=== PATIENT | female | born 1955 | race Caucasian/White ===

== ENCOUNTER 2016-10-28 10:17 | Outpatient (CLI) | payer OTHER ==
[~2016-10-28 10:17] MED LIST: AMITIZA24 MCG PO; ATORVASTATIN CA20 MG PO; CVS GLYCERIN ADU2 GM PR; CYCLOBENZAPRINE10 MG PO; ENALAPRIL MALE2.5 MG PO; ESTRADIOL0.5 MG PO; HYDROCHLOROTH12.5 MG PO; JARDIANCE25 MG PO; LANTUS SOL100 UNITS/; LEVOTHYROXINE100 MCG PO; METOCLOPRAMIDE10 MG PO; NOVOLOG PE100 UNITS/; OXYCONTIN PO; OXYCONTIN30 MG PO; TRULICITY1.5 MG/0.5; ZOFRAN ODT4 MG PO
[2016-10-28 10:45] VITALS: BP 140/64
--- NOTE | 2016-10-28 11:32 | NUR ---
PT HERE FOR PHLEBOTOMY HEP LOC PLACED RIGHT FOREARM WITH AN 18 GUAGE 1 UNIT REMOVED PT SHAVON PROCEDURE WELL
--- NOTE | 2016-10-28 12:24 | NUR ---
PT STATED FELT LIKE BLOOD SUGAR WAS LOW ACCU CHECK 228. STATED SHE GETS THE SAME SX EIGHT HIGH OR LOW WATER GIVEN PT STATED SHE JUST NEEDS TO GET SOME INSULIN WHICH SHE HAS. PT IN DISCHARGED WITH SPOUSE
== END 2016-10-28 14:40 | disposition home or self-care (01) ==
LOC: SDP SRH 10:17 → OB SRH 11:26 → SDP SRH 14:40
PROC: 05993ZZ Drainage of Right Brachial Vein, Percutaneous Approach (ICD-10-PCS; principal; 2016-10-28)
DX: D75.1 Secondary polycythemia (principal)

== ENCOUNTER 2017-01-06 14:03 | Outpatient (CLI) | payer OTHER | END 2017-01-06 23:00 | LOC: MRI SRH 14:03 | DX: M54.2 Cervicalgia (principal) ==

== ENCOUNTER → 2017-01-12 | Outpatient (CLI) | payer OTHER ==
--- NOTE | 2017-01-12 16:15 | DIAGNOSTIC IMAGING REPORT ---
PROCEDURE: MR LUMBAR SPINE W/O CONTRAST INDICATION: LBP TECHNIQUE: Noncontrast T1, T2, and STIR sagittal images. T1 and T2 axial images. COMPARISON: Lumbar spine MRI dated 02/24/2010 FINDINGS: L1-2: Normal. L2-3: Normal. L3-4: Normal. L4-5: There is a central and right-sided herniated nucleus pulposus at L4-5. There is 4-5 mm of cranial migration of the fragment. L5-S1: No change in the previously described moderate set disease with a grade 1 (2 mm) degenerative listhesis. IMPRESSION: 1. Herniated nucleus pulposus L4-5 that is central and right-sided with 4-5 mm of cranial migration.
--- NOTE | 2017-01-12 17:11 | DIAGNOSTIC IMAGING REPORT ---
PROCEDURE: MR CERVICAL SPINE W/O CONT INDICATION: CERVICALAGIA TECHNIQUE: Noncontrast T1, T2, and STIR sagittal images. T2 and gradient axial images. COMPARISON: Cervical spine MRI 04/02/2015. FINDINGS: Anterior surgical fusion at C6-7 with right C6 laminectomy. Normal alignment without fracture. Mild C4-5 disc space narrowing and spur formation at C5-6 and C7-T1. Mild spur formation at S4-5. Normal cervical cord. Paraspinal soft tissues are normal. C2-3: Normal appearance. C3-4: Small disc bulge with facet arthropathy resulting in mild to moderate bilateral foraminal stenosis. No spinal stenosis. C4-5: Mild disc bulge/spur complex and facet arthropathy with mild bilateral of foraminal stenosis. No spinal stenosis. C5-6: Mild right posterior disc bulge/spur complex with facet arthropathy with severe right and moderate left foraminal stenosis. No spinal stenosis. C6-7: Mild spur formation and facet arthropathy, with mild right foraminal stenosis. No spinal stenosis. C7-T1: Small disc bulge/spur complex. No foraminal or spinal stenosis. IMPRESSION: 1. No significant interval changes since MRI 04/02/1950 2. Anterior C6-7 surgical fusion and right C6 hemilaminectomy 3. Mild to moderate multilevel degenerative changes 4. Mild to moderate bilateral C3-4, mild bilateral C4-5, severe right and moderate left C5-6, and mild right C6-7 foraminal stenosis
== END ==
LOC: MRI SRH 01-07 13:30
DX: M51.26 Other intervertebral disc displacement, lumbar region (principal); Z98.1 Arthrodesis status; M50.31 Other cervical disc degeneration, high cervical region; M50.223 Other cervical disc displacement at C6-C7 level; M50.21 Other cervical disc displacement, high cervical region